=== PATIENT | male | born 1970 | race American Indian/Alaskan Native ===

== ENCOUNTER 2020-02-15 10:13 | Emergency (ER) | payer OTHER ==
[2020-02-15] MEDS ORDERED: LIDOCAINE (1%) 10 MG/1 ML VIAL 20 ML MDV INFILTRATI ONE (10:48)
[2020-02-15] MEDS ORDERED: SODIUM CHLORIDE 0.9% IRR 500 ML BOTTLE IR ONE (10:55)
--- NOTE | 2020-02-15 11:58 | Emergency Department Report ---
- General Chief Complaint: Wound/Laceration Stated Complaint: RT ARM LAC/RT THUMB PAIN Time Seen by Provider: 02/15/20 10:42 Source: patient Mode of arrival: Ambulatory Limitations: No Limitations - History of Present Illness Initial Comments: Patient is a 49-year-old male who presents emergency room with complaints of a laceration to the right thumb and right forearm that occurred around 9:30 AM today. He states that he was at work and pushed a window to open it and it shattered and cut him. He states he is able to move the fingers and arm without any difficulty. He denies any numbness or weakness. He states his last tetanus immunization was 2 to 3 years ago. He denies any past medical history. He denies any allergies to medications. - Related Data Previous Rx's Medication Instructions Recorded Last Taken Type cephALEXin [Keflex] 500 mg PO Q8H #15 capsule 03/07/14 Unknown Rx Allergies Allergy/AdvReac Type Severity Reaction Status Date / Time No Known Allergies Allergy Unverified 03/06/14 23:59 ED Review of Systems ROS: Stated complaint: RT ARM LAC/RT THUMB PAIN Other details as noted in HPI Comment: All other systems reviewed and negative ED Past Medical Hx - Past Medical History Previous Medical History?: No - Surgical History Past Surgical History?: Yes Additional Surgical History: ACHILLES - Social History Smoking Status: Never Smoker - Medications Home Medications: Home Medications Medication Instructions Recorded Confirmed Last Taken Type cephALEXin [Keflex] 500 mg PO Q8H #15 capsule 03/07/14 Unknown Rx ED Physical Exam - General Limitations: No Limitations General appearance: alert, in no apparent distress - Head Head exam: Present: atraumatic, normocephalic - Eye Eye exam: Present: normal appearance - ENT ENT exam: Present: mucous membranes moist - Neurological Exam Neurological exam: Present: alert, oriented X3 - Psychiatric Psychiatric exam: Present: normal affect, normal mood - Skin Skin exam: Present: warm, other (1.5 cm laceration present to the right anterior forearm, no muscle/tendon involvement, no foreign body, superficial, no bleeding, 2 cm laceration to the right thumb, skin avulsion is present, there is involvement of the nail bed but nail is intact in place, there is very small pulsating artery, FROM of the RUE, full ROM of the thumb with abduction and adduction against resistance, neurovascularly intact) ED Course Vital Signs 02/15/20 10:20 Temperature 98.4 F Pulse Rate 83 Respiratory 16 Rate O2 Sat by Pulse 98 Oximetry - Laceration /Wound Repair Right Posterior Distal Finger Wound Location: upper extremity (two lacerations present, one to the posterior thumb involves part of the nail bed but nail is intact, another laceration to the right anterior forearm) Wound Length (cm): 2 Wound's Depth, Shape: irregular (skin avulsion) Wound Explored: clean Irrigated w/ Saline (ccs): 500 Betadine Prep?: Yes Anesthesia: 1% Lidocaine Volume Anesthetic (ccs): 9 Wound Debrided: moderate Wound Repaired With: sutures Suture Size/Type: 4:0 Number of Sutures: 2 (2 in the forearm) Layer Closure?: Yes (right thumb) Deep Layer Suture Size/Type: 4:0 Number Deep Layer Sutures: 3 Sterile Dressing Applied?: Yes Progress: Laceration to the right thumb irrigated with saline and thoroughly scrubbed with Betadine, no muscle/tendon involvement, no foreign body, 6 cc of 1% lidocaine without epinephrine used for digital block of the right thumb, Betadine prep, sterile gloves worn, sterile drapes applied, small pulsating bleeding artery, 4- 0 Vicryl used, 3 sutures placed, electrocautery used, bleeding is now controlled and has resolved, there is a large skin avulsion present, unable to suture the skin secondary to it causing too much tension and the skin tears, Surgicel dressing placed over the wound and sterile dressing applied, patient tolerated well, no complications, bleeding controlled Laceration to the right forearm irrigated with saline and thoroughly scrubbed with Betadine, no muscle or tendon involvement, no foreign body, 3 cc of 1% lidocaine without epinephrine used as anesthetic, 4-0 Prolene used for skin approximation, 2 sutures placed, patient tolerated well, bleeding controlled, no complications, sterile dressing applied ED Medical Decision Making - Medical Decision Making Patient is a 49-year-old male who presents emergency room with complaints of a laceration to the right thumb and right forearm that occurred around 9:30 AM today. He states that he was at work and pushed a window to open it and it shattered and cut him. He states he is able to move the fingers and arm without any difficulty. He denies any numbness or weakness. He states his last tetanus immunization was 2 to 3 years ago. He denies any past medical history. He denies any allergies to medications. Vitals recorded in chart are stable. on exam: 1.5 cm laceration present to the right anterior forearm, no muscle/tendon involvement, no foreign body, superficial, no bleeding, 2 cm laceration to the right thumb, skin avulsion is present, there is involvement of the nail bed but nail is intact in place, there is very small pulsating artery, FROM of the RUE, full ROM of the thumb with abduction and adduction against resistance, neurovascularly intact. Lacerations repaired per procedure note. Please see procedure note for bleeding control of artery. Patient tolerated well, bleeding has resolved, no complications. advised pt Please keep area clean, dry, covered. Please keep tight dressing around the thumb for 2 hours and then remove and put looser dressing. May wash areas with soap and water and immediately dry. No hot tub, no pool, no soaking in water. Follow-up with a primary care doctor. Sutures in the forearm will need to be removed in 7 days. Sutures in the thumb are absorbable and will dissolve on their own. Return to the emergency room immediately for any new or worsening symptoms or any signs of infection Critical care attestation.: If time is entered above; I have spent that time in minutes in the direct care of this critically ill patient, excluding procedure time. ED Disposition Clinical Impression: Skin avulsion, Laceration of artery Laceration of right thumb Qualifiers: Encounter type: initial encounter Damage to nail status: without damage Foreign body presence: without foreign body Qualified Code(s): S61.011A - Laceration without foreign body of right thumb without damage to nail, initial encounter Laceration of right forearm Qualifiers: Encounter type: initial encounter Qualified Code(s): S51.811A - Laceration without foreign body of right forearm, initial encounter Disposition: DC-01 TO HOME OR SELFCARE Is pt being admited?: No Does the pt Need Aspirin: No Condition: Stable Instructions: Suture Care (ED), Laceration (ED) Additional Instructions: Please keep area clean, dry, covered. Please keep tight dressing around the thumb for 2 hours and then remove and put looser dressing. May wash areas with soap and water and immediately dry. No hot tub, no pool, no soaking in water. Follow-up with a primary care doctor. Sutures in the forearm will need to be removed in 7 days. Sutures in the thumb are absorbable and will dissolve on their own. Return to the emergency room immediately for any new or worsening symptoms or any signs of infection Referrals: PRIMARY CARE, [Primary Care Provider] - 3-5 Days CASEY PRATT MD [Staff Physician] - 3-5 Days [facility] [Provider Group] - 3-5 Days ELOISA BOGGS MD [Staff Physician] - 3-5 Days Time of Disposition: 12:06 Print Language: ALBANIAN
== END 2020-02-15 12:55 | disposition home or self-care (01) ==
LOC: ED 10:13
DX: S61.011A Laceration without foreign body of right thumb without damage to nail, initial encounter (principal); S51.811A Laceration without foreign body of right forearm, initial encounter; W45.8XXA Other foreign body or object entering through skin, initial encounter; Y93.89 Activity, other specified; Y99.0 Civilian activity done for income or pay; Y92.69 Other specified industrial and construction area as the place of occurrence of the external cause